=== PATIENT | male | born 1965 | race Caucasian/White ===

== ENCOUNTER 2017-09-25 05:21 | Emergency (ER) | payer MEDICAID, OTHER ==
[~2017-09-25] VITALS: Ht 177.8 cm; Wt 131.5 kg
[~2017-09-25 05:21] MED LIST: ACCU-CHEK COMB1 EACH MC; ACETAMINOPHEN500 M3 ORAL; AMLODIPINE BESY10 MG ORAL; AMOXICILLIN500 MG ORAL; ATENOLOL100 MG ORAL; CIPROFLOXACIN500 M2 ORAL; CYCLOBENZAPRINE10 MG ORAL; GABAPENTIN600 MG ORAL; IBUPROFEN600 MG ORAL; LORAZEPAM2 MG ORAL; METFORMIN HCL500 M1 ORAL; METHADONE HCL10 MG PO; NORCO 10/3251 EA ORAL; NORCO 5-325 TA1 EACH ORAL; PAIN PUMP DILAUDID; PEPCID20 MG ORAL; PERIDEX 0.12% O15 ML ORAL; QUETIAPINE FUM200 MG ORAL; WELLBUTRIN XL150 M3 ORAL; ZOFRAN ODT4 MG ORAL; ZOFRAN4 MG ORAL
[2017-09-25 05:33] VITALS: BP 151/89
--- NOTE | 2017-09-25 06:03 | Emergency Room Report ---
History of Present Illness General Chief Complaint: General Complaint Source: Patient Present Illness HPI Is a 51-year-old male who presents with chief complaint of foreign body in his left ear. He was cleaning with a Q-tip and it broke. No other trauma. this occurred tonight. Allergies: Coded Allergies: No Known Allergies (Verified Allergy, Mild, 08/25/07) Patient History Past Medical History: see triage record, old chart reviewed Past Surgical History: other Pertinent Family History: none Social History: Denies: smoking Immunizations: other Reviewed Nursing Documentation: PMH: Agreed, PSxH: Agreed Nursing Documentation-PMH Hx Hypertension: Yes Hx Diabetes: Yes Hx Gastrointestinal Problems: Yes - Colitis Review of Systems Eye: Denies: eye pain, blurred vision ENT: Denies: ear pain, nose congestion, throat swelling Respiratory: Denies: cough, shortness of breath Cardiovascular: Denies: chest pain, palpitations Gastrointestinal: Denies: abdominal pain, diarrhea, nausea, vomiting Musculoskeletal: Denies: back pain, joint pain Skin: Denies: rash Neurological: Denies: headache, numbness Endocrine: Denies: increased thirst, increased urine Hematologic/Lymphatic: Denies: easy bruising All Other Systems: negative except mentioned in HPI Physical Exam Vital Signs Date Time Temp Pulse Resp B/P (MAP) Pulse Ox O2 Delivery O2 Flow Rate FiO2 09/25/17 05:33 97.9 75 16 151/89 95 Room Air vitals normal except for high blood pressure Sp02 EP Interpretation: reviewed, normal General Appearance: well appearing, no apparent distress, alert Head: normocephalic, atraumatic Eyes: bilateral eye PERRL, bilateral eye EOMI ENT: hearing grossly normal, normal pharynx, other - Foreign body in the left ear. Cerumen impaction bilaterally. Neck: full range of motion, supple, no meningismus Respiratory: chest non-tender, lungs clear, normal breath sounds Cardiovascular #1: regular rate, rhythm, no murmur Gastrointestinal: normal bowel sounds, non tender, no mass, no organomegaly, no bruit, non-distended Musculoskeletal: back normal, gait/station normal, normal range of motion Psychiatric: mood/affect normal Skin: warm/dry Procedures Additional Procedure Procedure Narrative Procedure #1: Foreign body removal Indication: Foreign body left ear canal Description: Using an alligator forcep, foreign body removed without difficulty. Patient procedure without a problem. No complication Procedure #2: Cerumen disimpaction Indication: Cerumen impaction Description: After removing a Q-tip with the alligator forcep, I irrigate posterior with normal saline. Is a remove a large cerumen in both canals. Patient heart disease any problem. No complication Medical Decision Making Diagnostic Impression: Primary Impression: Acute foreign body of left ear canal Qualified Codes: T16.2XXA - Foreign body in left ear, initial encounter Additional Impression: Impacted cerumen of both ears ER Course Patient with cerumen impaction and foreign body. He felt better now. We'll discharge him. Last Vital Signs Date Time Temp Pulse Resp B/P (MAP) Pulse Ox O2 Delivery O2 Flow Rate FiO2 09/25/17 05:33 97.9 75 16 151/89 95 Room Air Status: improved Disposition: HOME, SELF-CARE Condition: Stable Additional Instructions: Followup your doctor as needed 7 days return if worse. HALEY LINARES M.D. Sep 25, 2017 06:03
[2017-09-25 06:08] VITALS: BP 142/88
== END 2017-09-25 06:05 | disposition home or self-care (01) ==
LOC: EMR 05:57
DX: T16.2XXA Foreign body in left ear, initial encounter (principal); X58.XXXA Exposure to other specified factors, initial encounter; Y92.9 Unspecified place or not applicable; H61.23 Impacted cerumen, bilateral; I10 Essential (primary) hypertension; E11.9 Type 2 diabetes mellitus without complications
CPT/HCPCS: 69210; 99283

== ENCOUNTER 2018-01-20 20:06 | Emergency (ER) | payer MEDICAID ==
[~2018-01-20] VITALS: Ht 180.3 cm; Wt 135.2 kg
[2018-01-20] MEDS ORDERED: ATIVAN2 MG/1 ML PO (20:47)
[2018-01-20] MEDS ORDERED: BENADRYL25 MG ORAL (20:47)
[2018-01-20] MEDS ORDERED: METOPROLOL TART50 M1 ORAL (20:47)
[2018-01-20] MEDS ORDERED: insulin (20:47)
[2018-01-20] MEDS ORDERED: METHADONE HCL10 MG PO (20:47)
[2018-01-20] MEDS ORDERED: LOSARTAN POTASS25 MG ORAL (20:47)
[2018-01-20] MEDS ORDERED: JANUVIA25 MG ORAL (20:47)
[2018-01-20] MEDS ORDERED: GABAPENTIN300 MG ORAL (20:47)
[2018-01-20 20:50] VITALS: BP 129/78
--- NOTE | 2018-01-20 21:26 | Emergency Room Report ---
History of Present Illness General Chief Complaint: Dizziness Source: Patient Present Illness HPI Patient 52-year-old male who presented after increased vertigo sensation. Patient gradual onset of symptoms. Patient reported having increased dizziness for approximately one week. He had not been vomiting. He reports having prior history of a recent Q-tip stuck in his ear. He reports having a spinning sensation worse with movements to the left. He denies any fever. He had not been having any ringing in his ears. The patient reports being diabetic he states his insulin pump was not working. Allergies: Coded Allergies: No Known Allergies (Verified Allergy, Mild, 08/25/07) Patient History Past Medical History: see triage record Reviewed Nursing Documentation: PMH: Agreed; PSxH: Agreed Nursing Documentation-PMH Hx Hypertension: Yes Hx Diabetes: Yes Hx Gastrointestinal Problems: Yes - Colitis Review of Systems All Other Systems: negative except mentioned in HPI Physical Exam Vital Signs Date Time Temp Pulse Resp B/P (MAP) Pulse Ox O2 Delivery O2 Flow Rate FiO2 01/20/18 20:41 98.4 73 16 129/78 93 Room Air 98.4 General Appearance: well appearing, no apparent distress, alert, GCS 15, obese Head: normocephalic, atraumatic ENT: normal voice, other - no hemotympanum Neck: full range of motion, supple Respiratory: no respiratory distress, speaking full sentences Cardiovascular #1: normal inspection, regular rate, rhythm, no edema, no gallop Musculoskeletal: normal inspection, back normal, digits/nails normal, no calf tenderness Neurologic: normal inspection, alert, oriented x3, responsive, skin lap bonder III-XII nml as tested, normal gait Psychiatric: mood/affect normal Skin: no rash Medical Decision Making Diagnostic Impression: Primary Impression: Vertigo ER Course Patient presented for vertigo. Differential diagnosis included but was not limited to labyrinthitis, mastoiditis, CVA, BPV among others. CT of the head read by radiology showed no evidence of acute CVA or hemorrhage. Patient was given oral meclizine with improvement.The patient is advised to follow up with. scheduled ENT appointment. Patient is advised to return if any worsening condition or if any changes in status that are concerning. This report is dictated with [employer] program leader software which may occasionally lead to discrepancies related to use of this software. Last Vital Signs Date Time Temp Pulse Resp B/P (MAP) Pulse Ox O2 Delivery O2 Flow Rate FiO2 01/20/18 20:41 98.4 73 16 129/78 93 Room Air 98.4 Status: improved Disposition: HOME, SELF-CARE Condition: Stable Scripts Meclizine Hcl* (MECLIZINE*) 25 Mg Tablet 25 MG ORAL THREE TIMES A DAY, #20 TAB Prov: Ranjith Jarrell 01/20/18 Ranjith Jarrell Jan 20, 2018 21:25
[2018-01-20] MEDS ORDERED: Meclizine 25mg tab ORAL ONE (21:30)
[2018-01-20] MEDS ORDERED: MECLIZINE HCL25 MG ORAL (22:36)
[2018-01-20 23:25] VITALS: BP 129/78
--- NOTE | 2018-01-21 10:13 | Diagnostic Imaging Report ---
Indication: Dizziness Technique: Contiguous 5 mm thick transaxial imaging of the head obtained in a Siemens Sensation [address] scanner. Soft tissue and bone windows generated. Automatic Exposure Control was utilized. Total Dose length Product (DLP): 1379.[address] Dose Index Volume (CTDIvol): 70.38 mGy Comparison: none Findings: There is mild prominence of the ventricles, basal cisterns, and cerebral sulci consistent with atrophy. Mild, nonspecific, white matter hypoattenuation is noted throughout the brain consistent with chronic small vessel disease. There is no midline shift, edema, acute hemorrhage, mass effect, or abnormal extra-axial fluid collections. Bones and extra osseous soft tissues are unremarkable. Impression: No acute intracranial bleed, mass effect or edema. Mild atrophy of the brain. Nonspecific white matter hypoattenuation probably due to chronic small vessel disease. The CT scanner at [facility] is accredited by the [employer] and the scans are performed using dose optimization techniques as appropriate to a performed exam including Automatic Exposure control.
== END 2018-01-20 23:25 | disposition home or self-care (01) ==
LOC: EMR 21:30
DX: R42 Dizziness and giddiness (principal); I10 Essential (primary) hypertension; E11.9 Type 2 diabetes mellitus without complications; G31.9 Degenerative disease of nervous system, unspecified; Z87.19 Personal history of other diseases of the digestive system
CPT/HCPCS: 70450; 99283

== ENCOUNTER 2018-08-11 22:19 | Emergency (ER) | payer MEDICAID ==
[~2018-08-11] VITALS: Ht 182.9 cm; Wt 133.8 kg
[~2018-08-11 22:19] MED LIST changes: +ATIVAN2 MG/1 ML PO; +BENADRYL25 MG ORAL; +GABAPENTIN300 MG ORAL; +JANUVIA25 MG ORAL; +LOSARTAN POTASS25 MG ORAL; +MECLIZINE HCL25 MG ORAL; +METOPROLOL TART50 M1 ORAL; +insulin
[2018-08-11 22:21] VITALS: BP 129/67
--- NOTE | 2018-08-11 22:59 | Emergency Room Report ---
History of Present Illness General Chief Complaint: Allergic Reaction Source: Patient Present Illness HPI Patient is a 52-year-old male presented after increased lip swelling. Patient was having onset of symptoms is morning. He had taken multiple 25 mg Benadryl doses without any evident change. Patient had prior similar symptoms in the past. The patient reports being diabetic and takes insulin. He denies any LIBBY inhibitor use.The patient currently takes metoprolol as well as losartan for hypertension. He reports taking aspirin.He denies any shortness of breath this time. Allergies: Coded Allergies: No Known Allergies (Verified Allergy, Mild, 08/25/07) Patient History Past Medical History: see triage record Reviewed Nursing Documentation: PMH: Agreed; PSxH: Agreed Nursing Documentation-PMH Hx Hypertension: Yes Hx Diabetes: Yes Hx Gastrointestinal Problems: Yes - Colitis Review of Systems All Other Systems: negative except mentioned in HPI Physical Exam Vital Signs Date Time Temp Pulse Resp B/P (MAP) Pulse Ox O2 Delivery O2 Flow Rate FiO2 08/11/18 22:28 98.1 95 12 150/80 95 Room Air General Appearance: well appearing, no apparent distress, alert, GCS 15, obese Head: normocephalic, atraumatic ENT: hearing grossly normal, normal voice, other - lower lip swelling, no tongue or uvular swelling Neck: full range of motion, supple Respiratory: no respiratory distress, speaking full sentences Cardiovascular #1: normal inspection, no edema Gastrointestinal: normal inspection, normal bowel sounds, non tender Musculoskeletal: normal inspection, no calf tenderness Neurologic: normal inspection, alert, oriented x3, responsive, normal gait Psychiatric: normal inspection, mood/affect normal Skin: no rash Medical Decision Making Diagnostic Impression: Primary Impression: Allergic reaction ER Course The patient presented for lip swelling. Differential diagnosis included was not limited to angioedema, allergic reaction, abscess, contact dermatitis among others. Patient has a benign exam and does not appear to require any further imaging or laboratory testing at this time. Patient was noted to have what appears to be a mild allergy versus angioedema. Patient was given Solu-Medrol and Benadryl with improvement swelling. The patient was given prescription for steroid medications as well as insulin due to patient's diabetes. He is advised to maintain the glucose control and watch his diet. Patient was advised to follow up with primary care physician for recheck. Last Vital Signs Date Time Temp Pulse Resp B/P (MAP) Pulse Ox O2 Delivery O2 Flow Rate FiO2 08/11/18 22:28 98.1 95 12 150/80 95 Room Air Status: improved Disposition: HOME, SELF-CARE Condition: Stable Scripts Prednisone* (PREDNISONE*) 20 Mg Tablet 40 MG ORAL DAILY, #10 TAB Prov: Ranjith Jarrell MD 08/12/18 Insulin Regular, Human* (NOVOLIN R*) 100 Unit/1 Ml Vial 0 SUBQ .SLIDING SCALE, #1 VIAL Prov: Ranjith Jarrell MD 08/12/18 Ranjith Jarrell MD Aug 11, 2018 22:59
[2018-08-11] MEDS ORDERED: Solu-MEDROL 125mg Inj IVP ONE (23:00)
[2018-08-11] MEDS ORDERED: DiphenhydrAMINE 50mg/ml Inj IVP ONE (23:00)
[2018-08-12] MEDS ORDERED: NOVOLIN R100 UNIT/1 SUBQ (00:47)
[2018-08-12] MEDS ORDERED: PREDNISONE20 MG ORAL (00:47)
[2018-08-12 00:51] VITALS: BP 136/81
== END 2018-08-12 00:51 | disposition home or self-care (01) ==
LOC: EMR 23:00
DX: T78.40XA Allergy, unspecified, initial encounter (principal); X58.XXXA Exposure to other specified factors, initial encounter; E11.9 Type 2 diabetes mellitus without complications; Z79.4 Long term (current) use of insulin; I10 Essential (primary) hypertension; Z87.19 Personal history of other diseases of the digestive system
CPT/HCPCS: 96374; 96375; 99284; J1200; J2930

== ENCOUNTER 2018-12-29 19:57 | Emergency (ER) | payer MEDICAID ==
[~2018-12-29] VITALS: Ht 177.8 cm; Wt 128.4 kg
[~2018-12-29 19:57] MED LIST changes: +NOVOLIN R100 UNIT/1 SUBQ; +PREDNISONE20 MG ORAL
[2018-12-29 20:23] VITALS: BP 138/85
--- NOTE | 2018-12-29 20:26 | NUR ---
ED Nurse Note: pt walked in c/o left facial swelling and sorethroat, pt states he is allergic internally, pt states when pt is "run down" he gets allergic reaction - sorethroat and facial swelling. pt airway intact, no tongue swelling nor dysphagia noted at this time, pt vss, resp even and unlabored on RA, -n/v/d at this time, no sx resp distress, will cont monitor. pt provided w/ warm blanket for comfort, advised to notify staff if changes in condition or need assist.
[2018-12-29] MEDS ORDERED: DiphenhydrAMINE 50mg/ml Inj IVP ONE (21:15)
--- NOTE | 2018-12-29 21:23 | NUR ---
ED Nurse Note: pt c/o nausea, ERMD notified, received order 4mg zofran odt once.
--- NOTE | 2018-12-29 22:05 | Emergency Room Report ---
History of Present Illness General Chief Complaint: Allergic Reaction Source: Patient Present Illness HPI This is a 61 about a history of diabetes, complains of his left upper lip swelling. He states that he gets this quite often. Uncertain if he has a history of allergic reaction versus angioedema. He has been at Hospital multiple times for this. He states that he's been taking Benadryl over-the- counter but only IV Benadryl works.. He denies any difficulty with breathing. He denies any change in voice. He denies any rash. He recall taking anything that would cause his allergic reaction. Allergies: Coded Allergies: No Known Allergies (Verified , 12/29/18) Patient History Past Medical History: DM Past Surgical History: none Pertinent Family History: none Nursing Documentation-PMH Hx Hypertension: Yes Hx Diabetes: Yes Hx Gastrointestinal Problems: Yes - Colitis Review of Systems All Other Systems: negative except mentioned in HPI Physical Exam Vital Signs Date Time Temp Pulse Resp B/P (MAP) Pulse Ox O2 Delivery O2 Flow Rate FiO2 12/29/18 20:01 98.2 63 138/85 95 12/29/18 20:23 16 Room Air General Appearance: well appearing, no apparent distress Head: normocephalic, atraumatic ENT: hearing grossly normal, normal voice Neck: full range of motion, supple Respiratory: no respiratory distress, speaking full sentences Musculoskeletal: no calf tenderness Neurologic: alert, normal gait Psychiatric: mood/affect normal Skin: no rash Medical Decision Making Diagnostic Impression: Primary Impression: Allergic reaction ER Course Patient was given an emergent dose of IV Benadryl. He was completely resolved. He is watched here for several hours with no change in symptoms. I see no evidence of airway compromise. I see no evidence of angioedema. He is not on LIBBY inhibitors. Given the patient's improvement, I feel the patient will be discharged home with very close follow-up with his primary care physician to return sooner does any change in symptoms or worsening symptoms. I do not feel that the patient requires prednisone. I think the risk outweighs the benefit. His symptoms were extremely mild. He has no rash. Rhythm Strip Diag. Results Rhythm Strip Time: 22:03 EP Interpretation: yes Rhythm: NSR, no PVC's, no ectopy Last Vital Signs Date Time Temp Pulse Resp B/P (MAP) Pulse Ox O2 Delivery O2 Flow Rate FiO2 12/29/18 20:23 63 16 12/29/18 20:23 98.2 138/85 95 Room Air Disposition: HOME, SELF-CARE Referrals: NOT CHOSEN IPA/MD,REFERRING (PCP) Patient Instructions: Allergies EDD HANSON Dec 29, 2018 22:05
--- NOTE | 2018-12-29 22:30 | NUR ---
ED Nurse Note: pt cleared to be d/c per ERMD, pt discharge and aftercare instruction provided, pt states he is going to uber back home, pt advised to follow up with pcp or return to ed if sx worsen or new sx develop, pt verbalized understanding and agrees with plan, vss, ambulatory w/ steady gait, no sx resp distress, left w/ all belongings, iv d/c and wristband removed.
[2018-12-29 22:41] VITALS: BP 148/61
== END 2018-12-29 22:30 | disposition home or self-care (01) ==
LOC: EMR 20:24
DX: T78.40XA Allergy, unspecified, initial encounter (principal); X58.XXXA Exposure to other specified factors, initial encounter; R60.0 Localized edema; I10 Essential (primary) hypertension; E11.9 Type 2 diabetes mellitus without complications
CPT/HCPCS: 96374; 99284; J1200

== ENCOUNTER 2019-02-21 07:12 | Emergency (ER) | payer BC, MEDICAID ==
[~2019-02-21] VITALS: Ht 177.8 cm; Wt 128.4 kg
[2019-02-21 07:29] VITALS: BP 165/95
[2019-02-21] MEDS ORDERED: METOPROLOL TART50 M1 ORAL (07:47)
--- NOTE | 2019-02-21 07:49 | Emergency Room Report ---
History of Present Illness General Chief Complaint: Medication Refill Source: Patient Present Illness HPI Patient is a 53-year-old male presented for medication refill. Patient stated that he took his last dose of his metoprolol this morning. Patient is normally take metoprolol 3 times a day. Patient said he was unable to get an appoint with his physician for approximately 1 month. Patient reports having prior allergy to amlodipine. He denies any current symptoms. He denies any fever. Allergies: Coded Allergies: AMLODIPINE (Verified Allergy, Severe, 02/21/19) oral edema Patient History Reviewed Nursing Documentation: PMH: Agreed; PSxH: Agreed Nursing Documentation-PM Past Medical History: No History, Except For Hx Hypertension: Yes Hx Diabetes: Yes Hx Gastrointestinal Problems: Yes - Colitis Review of Systems All Other Systems: negative except mentioned in HPI Physical Exam Vital Signs Date Time Temp Pulse Resp B/P (MAP) Pulse Ox O2 Delivery O2 Flow Rate FiO2 02/21/19 07:29 98.4 66 20 165/95 (118) 98 Room Air General Appearance: well appearing, no apparent distress, alert, GCS 15, obese Head: normocephalic, atraumatic ENT: hearing grossly normal, normal voice Neck: full range of motion, supple Respiratory: lungs clear, no respiratory distress, speaking full sentences Gastrointestinal: normal inspection Musculoskeletal: no calf tenderness Neurologic: normal gait Psychiatric: mood/affect normal Skin: no rash Medical Decision Making Diagnostic Impression: Primary Impression: Medication refill ER Course Patient presented for medication refill. Differential diagnosis include was not limited to uncontrolled hypertension, medication withdrawal among others. Patient has a benign exam and does not appear to require any further imaging or laboratory testing at this time. Patient appears to have stable blood pressure at this time. He was given a refill for his medications. He is advised to follow-up with his primary care physician for recheck. Last Vital Signs Date Time Temp Pulse Resp B/P (MAP) Pulse Ox O2 Delivery O2 Flow Rate FiO2 02/21/19 07:29 98.4 66 20 165/95 (118) 98 Room Air Status: improved Disposition: HOME, SELF-CARE Condition: Stable Scripts Metoprolol Tartrate* (METOPROLOL TARTRATE*) 50 Mg Tablet 50 MG ORAL THREE TIMES A DAY, #90 TAB Prov: Ranjith Jarrell MD 02/21/19 Patient Instructions: Medicine Refill at the Emergency Department Ranjith Jarrell MD February 21, 2019 07:49
--- NOTE | 2019-02-21 08:00 | NUR ---
ER DISCHARGE NOTE: Patient is cleared to be discharged per ERMD, pt is aox4, on room air, with stable vital signs. pt was given dc and prescription instructions, pt was able to verbalize understanding, pt is able to ambulate with steady gait. pt took all belongings.
[2019-02-21 08:29] VITALS: BP 165/95
== END 2019-02-21 08:00 | disposition home or self-care (01) ==
LOC: EMR 07:58
DX: Z76.0 Encounter for issue of repeat prescription (principal); I10 Essential (primary) hypertension; E11.9 Type 2 diabetes mellitus without complications; Z88.8 Allergy status to other drugs, medicaments and biological substances; E66.9 Obesity, unspecified; Z68.41 Body mass index [BMI] 40.0-44.9, adult
CPT/HCPCS: 99282